=== PATIENT | male | born 1930 | race African-American/Black ===

== ENCOUNTER 2017-03-24 03:41 | Inpatient (IN) | payer OTHER, MEDICARE ==
[~2017-03-24] VITALS: Ht 170.2 cm; Wt 88.6 kg
--- NOTE | ~2017-03-24 | DS ---
Discharge Summary [facility] [address] [facility] [place]. [address] NAME: JEFF COLON : 32 STATUS : DIS IN PAT#: [id number] AGE: 86 ADM/REG DATE : 03/24/17 MR#: [id number] REPORT SERV DATE: 03/29/17 DICTATED BY: PIPO EISENBERG DATE: 03/28/17 REPORT STATUS : Draft TRANSCRIBED BY: MODL DATE: 03/28/17 ADMISSION DATE: 03/24/2017 DISCHARGE DATE: 03/28/2017 Mr. Colon is an 86-year-old male with a history of diabetes type 2, hypertension, COPD and schizophrenia, who presented to the hospital with a complaint of shortness of breath. For further details, please refer to H and P dictated by Dr. Cintron on 03/24/2017. HOSPITAL COURSE: Upon presentation to the hospital, review of imaging was concerning for pneumonia, likely due to aspiration. The patient was started on empiric antibiotic therapy, admitted under Hospitalist Service for further management. During his hospital course, the patient was noted to have dysphagia prompting a speech and swallow eval. The patient was also subsequently placed on aspiration precautions. Status post evaluation for aspiration, a mechanical soft diet was recommended. The patient has responded well to therapy with significant resolution of his hypoxia. He is saturating appropriately on minimal nasal cannula, and the patient appears to have returned to his baseline. The patient is right now hemodynamically stable. Given his improvement, given his hemodynamic stability, given completion of management, the patient will be discharged back to his residential. Plan has been discussed with the patient. Case Management has assisted in returning patient to his residential. Per information gotten from residential, the patient is okay to return home today. DISCHARGE DIAGNOSES: 1. Aspiration pneumonia. 2. Chronic obstructive pulmonary disease exacerbation. 3. Microcytic anemia. 4. Hypoxic respiratory failure. 5. Obesity. 6. Diabetes type 2. DISCHARGE MEDICATIONS: The patient's home medications were continued without the addition of any new medications. The patient's home medications include: 1. Amlodipine 5 mg p.o. daily. 2. Ascorbic acid 500 mg p.o. daily. 3. Vitamin B12 1000 mcg p.o. daily. 4. Depakote 250 mg p.o. three times a day. 5. Colace 100 mg p.o. twice a day. 6. Lasix 20 mg p.o. before breakfast. 7. Gabapentin 100 mg p.o. three times a day. 8. Glimepiride 2 mg p.o. before breakfast. 9. Latanoprost ophthalmic solution. 10.Multivitamin tablet. 11.Lopressor 50 mg p.o. twice a day. Discharge Summary [address] [place]. [address] NAME: JEFF COLON : 32 STATUS : DIS IN PAT#: [id number] AGE: 86 ADM/REG DATE : 03/24/17 MR#: [id number] REPORT SERV DATE: 03/29/17 DICTATED BY: PIPO EISENBERG DATE: 03/28/17 REPORT STATUS : Draft TRANSCRIBED BY: KWASI DATE: 03/28/17 12.MiraLAX powder g p.o. at bedtime. 13.Risperidone 2 mg p.o. daily. 14.Risperidone mg p.o. at bedtime. 15.Rivastigmine 4.5 mg p.o. twice a day. 16.Spironolactone 50 mg p.o. daily. 17.Clonidine 0.3 mg p.o. three times a day. 18.Metformin 1000 mg p.o. twice a day. 19.Prednisone 40 mg p.o. daily for 5 days. IMAGING: Chest x-ray, portable chest x-ray, impression: Increasing perihilar and right lower lobe atelectatic changes from yesterday's exam. CT chest without contrast, impression: 1. Bibasilar atelectatic changes, question prior aspiration. 2. Minimal coronary calcifications. No PE seen. 3. Ascending and descending thoracic aorta normal. DISPOSITION: The patient will be discharged to subacute rehab. ACTIVITY: As tolerated. DIET: Mechanical soft diet. Greater than 30 minutes was spent discharging patient. BLESSING/KWASI Pipo Eisenberg MD / [id number] CC: MD Stephanie Cannon
--- NOTE | ~2017-03-24 | HP ---
History And Physical [facility] [address] [place]. [address] NAME: JEFF COLON : 32 STATUS : ADM IN [facility]#: [id number] AGE: 86 ADM/REG DATE : 03/24/17 MR#: [id number] REPORT SERV DATE: 03/24/17 DICTATED BY: FILIBERTO RUDOLPH DATE: 03/24/17 REPORT STATUS : Draft TRANSCRIBED BY: MODL DATE: 03/24/17 DATE OF ADMISSION: 03/24/2017 CHIEF COMPLAINT: Low oxygen saturations down to 84%, cough, and pneumonia. HISTORY OF PRESENT ILLNESS: This is an 86-year-old male, a resident at [facility] in [place], [place], with a history of recent pneumonia diagnosed in the last two days or so, history of COPD, hypertension, diabetes mellitus, chronic anemia, and schizophrenia, who presents to the emergency room at [facility] with the above-mentioned complaint. History is obtained from the patient's family and reviewing data available on the [employer] system. According to Mr. Colon and the family, he had been in his usual state of health until about two to three days ago when the [place] [facility] reported that he had developed a cough and was not doing well. They had done some workup and thought it was pneumonia, brought him to the hospital here yesterday to be evaluated. Initial workup done then did not show any lobar consolidations or effusions, but he was, however, started on antibiotics and given some treatments and released back to the [place] [facility]. He returned there, was continuing on his antibiotics, but tonight started having low oxygen saturations down to 84% and a low-grade temperature as well. The patient was immediately transferred to the emergency room to be evaluated. In the emergency room, initial workup revealed a heart rate of 129, temperature of 99.5. He had hypoxic respiratory failure, and a chest x-ray showed right middle lobe abnormality and Hospitalist Service was asked to admit for further evaluation and treatment. At the time of my evaluation, he denied any chest pain or palpitations. He has no orthopnea. He does have a cough productive of greenish purulent appearing sputum. He denied any recent hemoptysis, night sweats, or weight loss. He has not had any recent falls or loss of consciousness. He did have some low-grade fever without any chills. No mention of any nausea, vomiting, diarrhea, dysuria, hematemesis, hematochezia, or hematuria. No other history of recent travel or exposures other than those mentioned above. PAST MEDICAL HISTORY: As detailed in history of present illness. SOCIAL HISTORY: He has a very remote history of smoking and has not smoked in many years. No history of recent alcohol use or recreational drug use. He used to be in the in [employer] [place] and since then has had some schizophrenia and other mental issues disabling him. He is currently in [facility] in [place], [place]. FAMILY HISTORY: Noncontributory. MEDICATIONS: At home were reviewed by me in the chart today and reordered by me. REVIEW OF SYSTEMS: As in history of present illness. All other systems were reviewed in detail and quite History And Physical [address] [address] NAME: JEFF COLON : 32 STATUS : ADM IN [facility]#: [id number] AGE: 86 ADM/REG DATE : 03/24/17 MR#: [id number] REPORT SERV DATE: 03/24/17 DICTATED BY: FILIBERTO RUDOLPH DATE: 03/24/17 REPORT STATUS : Draft TRANSCRIBED BY: KWASI DATE: 03/24/17 unremarkable. PHYSICAL EXAMINATION: GENERAL: This is a pleasant 86-year-old, not in any acute distress. HEENT: His head appears to be atraumatic, normocephalic. He is alert and awake, not oriented to time, place. Pupils are equal, reacting to light and accommodating. External ocular muscles are intact. Membranes are moist and pink. Sclerae are nonicteric. NECK: Supple with no jugular venous distention, lymphadenopathy, or thyromegaly. LUNGS: Auscultation of his lungs revealed coarse rhonchi bilaterally and crackles in both bases. He has expiratory wheezes as well. Trachea appears to be in the midline. Auscultation of his heart revealed normal rate and rhythm with no murmurs, rubs, or gallops. ABDOMEN: Soft and nontender. Bowel sounds are present. EXTREMITIES: Showed no cyanosis, clubbing, or edema. NEURO: Grossly intact. He is able to move all four extremities. Gait is not examined. VITAL SIGNS: His vital signs today showed a temperature of 99.5, pulse 129, respirations 18 a minute, blood pressure is 159/88, oxygen saturations are 96% on 3 L of oxygen via nasal cannula. LABORATORY DATA: Reviewed on the [employer] system showed a pH of 7.37 on arterial blood gas, pCO2 was 49, pO2 of 77, and bicarb was 27.7. This was on 3 L via nasal cannula. CMP was essentially within normal limits. His BNP was 22.1. Alkaline phosphatase was 142. Normal AST, ALT. Lactate was 3.0. CBC showed a white blood cell count of 9300, hemoglobin was 11.9, hematocrit 32.6, and platelet count was 238,000. His prothrombin time was 13.8 with an INR of 1.1, and urinalysis was grossly unremarkable. Films of the chest x-ray were reviewed by me on the PACS today and interpreted by me. Today's films were compared to prior films and available on the PACS as well. There is right middle lobe atelectasis versus pneumonia. No other lobar consolidations. There were no pleural effusions seen. A 12-lead EKG done in the emergency room was reviewed and interpreted by me. There is sinus tachycardia at a rate of 119 per minute. IMPRESSION: 1. Acute hypoxic respiratory failure. 2. Sepsis. 3. Pneumonia versus right middle lobe collapse or atelectasis. 4. Chronic obstructive pulmonary disease with acute exacerbation. 5. Hypertension. 6. Diabetes mellitus type 2. 7. Chronic anemia. 8. Schizophrenia. PLAN: We will admit Mr. Colon to the Hospitalist Service with telemetry for close monitoring. After cultures are obtained, we will start him on empiric IV antibiotics for healthcare associated pneumonia. Meanwhile, we will go ahead and maximize bronchodilator treatments, continue supplemental oxygen therapy. We will also add mucolytics to his regimen via nebulizers. We will also encourage chest CPT and suctioning by RT. At this time, we will go ahead and get a CTA of the chest to further evaluate abnormality seen on the chest x-ray. We will also start him on NovoLog insulin per sliding scale for blood History And Physical [address] [address] NAME: JEFF COLON : 32 STATUS : ADM IN [facility]#: [id number] AGE: 86 ADM/REG DATE : 03/24/17 MR#: [id number] REPORT SERV DATE: 03/24/17 DICTATED BY: FILIBERTO RUDOLPH DATE: 03/24/17 REPORT STATUS : Draft TRANSCRIBED BY: KWASI DATE: 03/24/17 sugar control and check his A1c. We will continue all other home medications and treatments. His medication list is actually pending at this time. Nurses are working on it. We will also place him on unfractionated heparin for deep vein thrombosis prophylaxis while he is here. I have discussed the above plans with the patient, the patient's family, and their questions were answered, and they are agreeable to the above recommendations. Hospitalist Service will be following him during his stay here. /KWASI Filiberto Rudolph M.D. / [id number] CC: Jaqueline Chew
[2017-03-24 04:56] LABS: BE (BASE EXCESS) 1.7 MEQ/L (0 +/- 2.5); CARBOXYHEMOGLOBIN 1.2 % (0-3); HCO3 (ACTUAL BICARBONATE) 27.7 MEQ/L (23-27); HEMOBLOGIN CONTENT 12.5 G/DL (14-18); INSTRUMENT SERIAL # 8087; METHEMOGLOBIN 0.5 % (0-3); O2 CONTENT 16.4 VOL% (18-24); PCO2 (CO2 TENSION) 49 MMHG (35-45); PO2 (O2 TENSION) 77 MMHG (79-93); pH 7.37 (7.37-7.43)
[2017-03-24 04:57] LABS: DEVICE NC; SAMPLE Arterial
[2017-03-24 05:16] LABS: BASOPHILS 0.3 %; BASOPHILS ABSOLUTE 0.03 10/3/uL (0.0-0.16); EOSINOPHILS 2.3 %; EOSINOPHILS ABSOLUTE 0.21 10/3/uL (0.0-0.53); IMMATURE GRANULOCYTES 1.7 %; LYMPHOCYTES 33.8 %; LYMPHOCYTES ABSOLUTE 3.13 10/3/uL (0.67-4.30); MEAN CORPUS HGB CONC 36.5 g/dL (32.0-36.0); MEAN CORPUSCULAR HEMOGLOB 38.4 pg (26.0-34.0); MEAN CORPUSCULAR VOLUME 105.2 fL (80-100); MONOCYTES 15.7 %; MONOCYTES ABSOLUTE 1.45 10/3/uL (0.21-1.20); NEUTROPHILS 46.2 %; NEUTROPHILS ABSOLUTE 4.28 10/3/uL (2.02-8.40); RBC DISTRIBUTION WIDTH 18.2 % (12.0-16.0); WHITE BLOOD CELLS 9.3 10/3/uL (4.5-10.5)
[2017-03-24 05:19] LABS: HEMATOCRIT 32.6 % (40.0-51.0); HEMOGLOBIN 11.9 g/dL (13.6-17.8); IMMATURE GRANULOCYTES ABSOLUTE 0.16 10/3/uL (0.0-0.11); MANUAL DIFF NO %; PLATELET COUNT 238 10/3/uL (150-400)
[2017-03-24 05:35] LABS: BUN (BLOOD UREA NITROGEN) 10 MG/DL (6-23); CALCIUM, SERUM 8.8 MG/DL (8.5-10.4); CHLORIDE, SERUM 101 MMOL/L (96-112); CO2 (CARBON DIOXIDE) 32 MMOL/L (24-34); CREATININE 0.76 MG/DL (0.70-1.30); GFR AFRICAN AMERICAN 97 ML/MIN (>=60); GFR NON AFRICAN AMERICAN 84 ML/MIN (>=60); GLUCOSE, SERUM 89 MG/DL (60-99); POTASSIUM, SERUM 4.5 MMOL/L (3.5-5.3); SODIUM, SERUM 140 MMOL/L (135-148)
[2017-03-24 05:59] LABS: ANISOCYTOSIS 1+ (5-10/OIF) (0-5/OIF); PLATELET ESTIMATE ADQ (ADEQUATE)
[2017-03-24 06:00] LABS: MACROCYTES 1+ (5-10/OIF) (0-5/OIF); RBC MORPHOLOGY NORM (NORMAL)
[2017-03-24 06:13] LABS: PROCALCITONIN <0.05 ng/mL (<0.5)
[2017-03-24] MEDS ORDERED: AMARYL2 PO (09:27)
[2017-03-24] MEDS ORDERED: NORV25 PO (09:27)
[2017-03-24] MEDS ORDERED: CAT3 PO (09:27)
[2017-03-24] MEDS ORDERED: B121000P IM (09:27)
[2017-03-24] MEDS ORDERED: DSS PO (09:28)
[2017-03-24] MEDS ORDERED: DEPASPRINK PO (09:28)
[2017-03-24] MEDS ORDERED: NEUR100 PO (09:28)
[2017-03-24] MEDS ORDERED: L20 PO (09:28)
[2017-03-24] MEDS ORDERED: XALAT OPH (09:29)
[2017-03-24] MEDS ORDERED: LEVAQUIN750 MG PO (09:29)
[2017-03-24] MEDS ORDERED: DUONEB INH (09:29)
[2017-03-24] MEDS ORDERED: MULTIVIT/MIN PO (09:30)
[2017-03-24] MEDS ORDERED: PROMOD PO (09:30)
[2017-03-24] MEDS ORDERED: LOP50 PO (09:30)
[2017-03-24] MEDS ORDERED: GLUCOPHAGE1000 MG PO (09:30)
[2017-03-24] MEDS ORDERED: MIRALAX POWDER1 PKT PO (09:30)
[2017-03-24] MEDS ORDERED: RISP3 PO (09:31)
[2017-03-24] MEDS ORDERED: EXELON4.5 MG PO (09:31)
[2017-03-24] MEDS ORDERED: BACDS PO (09:31)
[2017-03-24] MEDS ORDERED: SPIRO50 PO (09:31)
[2017-03-24] MEDS ORDERED: RISP2 PO (09:31)
[2017-03-24] MEDS ORDERED: ALBUTEROL0.083 % INH (09:32)
[2017-03-24] MEDS ORDERED: ZINC GLUCONATE 50 MG PO (09:32)
[2017-03-24] MEDS ORDERED: VITC500 PO (09:32)
[2017-03-24] MEDS ORDERED: MOMUD PO (09:33)
[2017-03-24] MEDS ORDERED: BISR PR (09:33)
[2017-03-24] MEDS ORDERED: GGEXPUD PO (09:34)
[2017-03-24] MEDS ORDERED: FLEET ENEMA PR (09:34)
[2017-03-24 15:35] LABS: RETICULOCYTE COUNT 2.2 % (0.5-2.5); RETICULOCYTE COUNT ABSOLUTE 70.3 10/3/uL (20.2-119.8)
[2017-03-24 15:44] LABS: T PROTEIN (ELECT)(NOT OR 7.2 G/DL (6.0-8.5)
[2017-03-24 15:56] LABS: FOLATE 8.7 NG/ML (>5.2)
[2017-03-25 05:19] LABS: BASOPHILS 0.3 %; BASOPHILS ABSOLUTE 0.03 10/3/uL (0.0-0.16); EOSINOPHILS 0.5 %; EOSINOPHILS ABSOLUTE 0.05 10/3/uL (0.0-0.53); HEMATOCRIT 32.6 % (40.0-51.0); HEMOGLOBIN 10.9 g/dL (13.6-17.8); IMMATURE GRANULOCYTES 1.7 %; IMMATURE GRANULOCYTES ABSOLUTE 0.17 10/3/uL (0.0-0.11); LYMPHOCYTES 32.3 %; LYMPHOCYTES ABSOLUTE 3.19 10/3/uL (0.67-4.30); MEAN CORPUSCULAR HEMOGLOB 35.6 pg (26.0-34.0); MEAN CORPUSCULAR VOLUME 106.5 fL (80-100); MEAN PLATELET VOLUME 8.8 fL (9.2-13.0); MONOCYTES ABSOLUTE 1.78 10/3/uL (0.21-1.20); NEUTROPHILS 47.2 %; NEUTROPHILS ABSOLUTE 4.66 10/3/uL (2.02-8.40); PLATELET COUNT 231 10/3/uL (150-400); RBC DISTRIBUTION WIDTH 16.4 % (12.0-16.0); RED CELL COUNT 3.06 10/6/uL (4.7-6.1); WHITE BLOOD CELLS 9.9 10/3/uL (4.5-10.5)
[2017-03-25 05:20] LABS: MANUAL DIFF NO %; MEAN CORPUS HGB CONC 33.4 g/dL (32.0-36.0)
[2017-03-25 05:27] LABS: BUN (BLOOD UREA NITROGEN) 11 MG/DL (6-23); CALCIUM, SERUM 7.8 MG/DL (8.5-10.4); CHLORIDE, SERUM 105 MMOL/L (96-112); CO2 (CARBON DIOXIDE) 30 MMOL/L (24-34); CREATININE 0.67 MG/DL (0.70-1.30); GFR AFRICAN AMERICAN 102 ML/MIN (>=60); GFR NON AFRICAN AMERICAN 88 ML/MIN (>=60); GLUCOSE, SERUM 100 MG/DL (60-99); PHOSPHORUS, SERUM 2.5 MG/DL (2.5-4.5); POTASSIUM, SERUM 4.5 MMOL/L (3.5-5.3); SODIUM, SERUM 141 MMOL/L (135-148)
[2017-03-25 05:57] LABS: PROCALCITONIN <0.05 ng/mL (<0.5)
[2017-03-25 11:22] LABS: A/G 0.85 RATIO (0.9-2.10); ALB RELATIVE % 45.8 % (60.0-89.0); ALPHA 1 (ELECTRO) 0.27 GM/DL (0.1-0.4); ALPHA 1 RELAT % (NOT ORD) 3.7 % (1.0-4.0); ALPHA 2 (ELECTRO) 1.15 GM/DL (0.5-1.10); BETA GLOBULIN (SPE) 0.86 GM/DL (0.60-1.30); GAMMA GLOBULIN (SPE) 1.62 G/DL (0.70-1.60); GAMMA RELAT % 22.5 % (6.0-22.0)
[2017-03-26 06:25] LABS: BASOPHILS 0.1 %; BASOPHILS ABSOLUTE 0.01 10/3/uL (0.0-0.16); EOSINOPHILS 0 %; HEMATOCRIT 31.2 % (40.0-51.0); HEMOGLOBIN 10.9 g/dL (13.6-17.8); IMMATURE GRANULOCYTES 2.4 %; LYMPHOCYTES 26.9 %; LYMPHOCYTES ABSOLUTE 2.28 10/3/uL (0.67-4.30); MEAN CORPUS HGB CONC 34.9 g/dL (32.0-36.0); MEAN CORPUSCULAR VOLUME 108.7 fL (80-100); MEAN PLATELET VOLUME 9.6 fL (9.2-13.0); MONOCYTES 5.8 %; MONOCYTES ABSOLUTE 0.49 10/3/uL (0.21-1.20); NEUTROPHILS 64.8 %; NEUTROPHILS ABSOLUTE 5.51 10/3/uL (2.02-8.40); PLATELET COUNT 249 10/3/uL (150-400); RED CELL COUNT 2.87 10/6/uL (4.7-6.1); WHITE BLOOD CELLS 8.5 10/3/uL (4.5-10.5)
[2017-03-26 06:28] LABS: MANUAL DIFF NO %
[2017-03-26 08:11] LABS: POTASSIUM, SERUM 4.5 MMOL/L (3.5-5.3); SGOT(AST) 10 U/L (5-40); SODIUM, SERUM 141 MMOL/L (135-148)
[2017-03-26 08:54] LABS: A/G RATIO 0.6 (0.7-1.9); ALBUMIN 2.4 G/DL (3.5-5.0); BUN (BLOOD UREA NITROGEN) 13 MG/DL (6-23); CALCIUM, SERUM 8.4 MG/DL (8.5-10.4); CHLORIDE, SERUM 104 MMOL/L (96-112); CO2 (CARBON DIOXIDE) 27 MMOL/L (24-34); CREATININE 0.71 MG/DL (0.70-1.30); GFR AFRICAN AMERICAN 100 ML/MIN (>=60); GFR NON AFRICAN AMERICAN 86 ML/MIN (>=60); GLOBULIN 4.3 G/DL (2.5-4.1); GLUCOSE, SERUM 106 MG/DL (60-99); SGPT(ALT) 9 U/L (5-65); TOTAL BILIRUBIN 0.3 MG/DL (0-1.2); TOTAL PROTEIN 6.7 G/DL (6.0-8.5)
[2017-03-26 08:55] LABS: ALKALINE PHOSPHATASE 93 U/L (45-117)
[2017-03-27 04:42] LABS: BASOPHILS 0.1 %; BASOPHILS ABSOLUTE 0.01 10/3/uL (0.0-0.16); EOSINOPHILS 0 %; HEMATOCRIT 32.8 % (40.0-51.0); HEMOGLOBIN 11.3 g/dL (13.6-17.8); IMMATURE GRANULOCYTES ABSOLUTE 0.17 10/3/uL (0.0-0.11); LYMPHOCYTES 23.6 %; LYMPHOCYTES ABSOLUTE 1.97 10/3/uL (0.67-4.30); MANUAL DIFF NO %; MEAN CORPUS HGB CONC 34.5 g/dL (32.0-36.0); MEAN CORPUSCULAR HEMOGLOB 36.1 pg (26.0-34.0); MEAN CORPUSCULAR VOLUME 104.8 fL (80-100); MONOCYTES 8.5 %; MONOCYTES ABSOLUTE 0.71 10/3/uL (0.21-1.20); NEUTROPHILS 65.8 %; NEUTROPHILS ABSOLUTE 5.47 10/3/uL (2.02-8.40); PLATELET COUNT 243 10/3/uL (150-400); RBC DISTRIBUTION WIDTH 16.1 % (12.0-16.0); RED CELL COUNT 3.13 10/6/uL (4.7-6.1); WHITE BLOOD CELLS 8.3 10/3/uL (4.5-10.5)
[2017-03-27 04:58] LABS: A/G RATIO 0.6 (0.7-1.9); ALBUMIN 2.5 G/DL (3.5-5.0); ALKALINE PHOSPHATASE 95 U/L (45-117); BUN (BLOOD UREA NITROGEN) 14 MG/DL (6-23); CALCIUM, SERUM 8.5 MG/DL (8.5-10.4); CHLORIDE, SERUM 104 MMOL/L (96-112); CO2 (CARBON DIOXIDE) 30 MMOL/L (24-34); CREATININE 0.64 MG/DL (0.70-1.30); GFR AFRICAN AMERICAN 104 ML/MIN (>=60); GFR NON AFRICAN AMERICAN 90 ML/MIN (>=60); GLOBULIN 4.3 G/DL (2.5-4.1); GLUCOSE, SERUM 113 MG/DL (60-99); POTASSIUM, SERUM 4.4 MMOL/L (3.5-5.3); SGOT(AST) 10 U/L (5-40); SGPT(ALT) 11 U/L (5-65); SODIUM, SERUM 140 MMOL/L (135-148); TOTAL BILIRUBIN 0.2 MG/DL (0-1.2); TOTAL PROTEIN 6.8 G/DL (6.0-8.5)
[2017-03-27 08:44] LABS: SMEAR FOR ABNORMAL CELLS SEE PATHOLOGY REPORT
[2017-03-28 05:03] LABS: BASOPHILS 0.1 %; BASOPHILS ABSOLUTE 0.01 10/3/uL (0.0-0.16); EOSINOPHILS 0 %; HEMATOCRIT 32.7 % (40.0-51.0); HEMOGLOBIN 11.2 g/dL (13.6-17.8); IMMATURE GRANULOCYTES 3.7 %; IMMATURE GRANULOCYTES ABSOLUTE 0.34 10/3/uL (0.0-0.11); LYMPHOCYTES 20.6 %; LYMPHOCYTES ABSOLUTE 1.88 10/3/uL (0.67-4.30); MEAN CORPUS HGB CONC 34.3 g/dL (32.0-36.0); MEAN CORPUSCULAR VOLUME 105.1 fL (80-100); MEAN PLATELET VOLUME 9.4 fL (9.2-13.0); MONOCYTES 7.4 %; MONOCYTES ABSOLUTE 0.67 10/3/uL (0.21-1.20); NEUTROPHILS 68.2 %; NEUTROPHILS ABSOLUTE 6.21 10/3/uL (2.02-8.40); PLATELET COUNT 252 10/3/uL (150-400); RBC DISTRIBUTION WIDTH 16.3 % (12.0-16.0); RED CELL COUNT 3.11 10/6/uL (4.7-6.1); WHITE BLOOD CELLS 9.1 10/3/uL (4.5-10.5)
[2017-03-28 05:04] LABS: MANUAL DIFF NO %
[2017-03-28 05:20] LABS: A/G RATIO 0.6 (0.7-1.9); ALBUMIN 2.4 G/DL (3.5-5.0); ALKALINE PHOSPHATASE 86 U/L (45-117); BUN (BLOOD UREA NITROGEN) 14 MG/DL (6-23); CALCIUM, SERUM 8.5 MG/DL (8.5-10.4); CHLORIDE, SERUM 106 MMOL/L (96-112); CO2 (CARBON DIOXIDE) 26 MMOL/L (24-34); CREATININE 0.81 MG/DL (0.70-1.30); GFR AFRICAN AMERICAN 95 ML/MIN (>=60); GFR NON AFRICAN AMERICAN 82 ML/MIN (>=60); GLOBULIN 3.9 G/DL (2.5-4.1); GLUCOSE, SERUM 100 MG/DL (60-99); POTASSIUM, SERUM 4.7 MMOL/L (3.5-5.3); SGOT(AST) 11 U/L (5-40); SGPT(ALT) 15 U/L (5-65); SODIUM, SERUM 139 MMOL/L (135-148); TOTAL BILIRUBIN 0.2 MG/DL (0-1.2); TOTAL PROTEIN 6.3 G/DL (6.0-8.5)
== END 2017-03-28 19:07 | DRG 871 ==
LOC: ER 03:41 → 6NO 06:18
PROVIDERS: Hospitalist; Internal Medicine; Nurse Practitioner Acute Care
DX: A41.9 Sepsis, unspecified organism (principal); J96.01 Acute respiratory failure with hypoxia; J69.0 Pneumonitis due to inhalation of food and vomit; J44.1 Chronic obstructive pulmonary disease with (acute) exacerbation; F20.9 Schizophrenia, unspecified; R13.12 Dysphagia, oropharyngeal phase; J98.11 Atelectasis; E11.9 Type 2 diabetes mellitus without complications; I10 Essential (primary) hypertension; Z68.30 Body mass index [BMI] 30.0-30.9, adult; Z87.891 Personal history of nicotine dependence; Z66 Do not resuscitate; Z86.718 Personal history of other venous thrombosis and embolism; D53.9 Nutritional anemia, unspecified; E66.9 Obesity, unspecified; Z79.84 Long term (current) use of oral hypoglycemic drugs
CPT/HCPCS: 36600; 71010; 71275; 74230; 80048; 80053; 82607; 82746; 82805; 82962; 83036; 83605; 83615; 83735; 83880; 84100; 84145; 84155; 84165; 85025; 85045; 87040; 87205; 92610-GN; 92611-GN; 93005; 94640; 94668; 96365; 96375; 99285; A9270-GY; G8996-CJ-GN; G8996-CK-GN; G8997-CJ-GN; G8997-CK-GN; G8998-CJ-GN; G8998-CK-GN; J0692; J1956; J2920; J2930; J3370; Q9967